=== PATIENT | female | born 1945 | race American Indian/Alaskan Native ===

== ENCOUNTER 2016-12-06 07:06 | Outpatient (CLI) | payer MEDICARE ==
--- NOTE | 2016-12-06 14:12 | Mammography Report ---
BILATERAL MAMMOGRAM with CAD: HISTORY: Cancer screening. Comparison study is dated December 01, 2015. FINDINGS: The breast tissue is heterogeneously dense, which could obscure detection of small masses (approximately 50%-75% glandular). No mass, distortion, suspicious calcification, or skin change is seen. Stable radiographically benign calcifications are noted on the right. IMPRESSION: Negative mammogram. There is no mammographic evidence of malignancy. RECOMMENDATION: Follow-up per ACS guidelines. BI-RADS CATEGORY: 1 = Negative ACR BI-RADS MAMMOGRAPHIC CODES: 0 = Needs additional imaging evaluation; 1 = Negative; 2 = Benign; 3 = Probably benign; 4 = Suspicious; 5 = Malignant; 6 = Known biopsy-proven malignancy COMMENT: 1. Dense breast tissue, i.e., adenosis, fibrocystic changes, etc., may obscure an underlying neoplasm. 2. Approximately 10% of cancers are not detected with mammography. 3. A negative mammography report should not delay biopsy if a clinically suspicious mass is present. COMMENT: Patient follow-up letters are generated in [employer].
== END 2016-12-06 07:07 | disposition home or self-care (01) ==
LOC: MAMMO 07:06
PROVIDERS: ATTEND Internal Medicine
DX: Z12.31 Encounter for screening mammogram for malignant neoplasm of breast (principal)
CPT/HCPCS: 77067; G0202

== ENCOUNTER 2017-12-19 12:42 | Outpatient (CLI) | payer MEDICARE ==
--- NOTE | 2017-12-20 07:24 | Mammography Report ---
Bilateral mammogram: Compared to 12/06/16 and 12/01/15. CAD study utilized. Findings: Scattered glandular parenchyma bilaterally. Benign calcifications right breast. Benign axillary nodes. No microcalcification. Impression: Benign findings. Annual followup recommended. BI-RADS CATEGORY: 2 = Benign ACR BI-RADS MAMMOGRAPHIC CODES: 0 = Needs additional imaging evaluation; 1 = Negative; 2 = Benign; 3 = Probably benign; 4 = Suspicious; 5 = Malignant; 6 = Known biopsy-proven malignancy COMMENT: 1. Dense breast tissue, i.e., adenosis, fibrocystic changes, etc., may obscure an underlying neoplasm. 2. Approximately 10% of cancers are not detected with mammography. 3. A negative mammography report should not delay biopsy if a clinically suspicious mass is present. COMMENT: Patient follow-up letters are generated in [employer].
== END 2017-12-19 12:43 | disposition home or self-care (01) ==
LOC: MAMMO 12:42
PROVIDERS: ATTEND Internal Medicine
DX: Z12.31 Encounter for screening mammogram for malignant neoplasm of breast (principal)
CPT/HCPCS: 77067

== ENCOUNTER 2018-05-23 18:26 | Emergency (ER) | payer MEDICARE, OTHER ==
[2018-05-23 19:52] VITALS: BP 147/78
--- NOTE | 2018-05-23 21:46 | XRay Report ---
FINAL REPORT PROCEDURE: Three view cervical spine series TECHNIQUE: AP, lateral view and odontoid view were obtained. HISTORY: neck pain COMPARISON: No prior studies are available for comparison. FINDINGS: No fracture or subluxation is seen. The prevertebral soft tissues appear normal. Posterior elements a ppear intact. Moderate disc space narrowing with anterior osteophyte formation visualized at C5-C6. T here is mild narrowing of the C6-C7 disc space. IMPRESSION: Degenerative disc disease C5-C6-C6-C7 as described. No fracture or subluxation is visualized.
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
== END 2018-05-23 23:46 | disposition home or self-care (01) ==
LOC: ED 18:26
DX: S16.1XXA Strain of muscle, fascia and tendon at neck level, initial encounter (principal); V89.2XXA Person injured in unspecified motor-vehicle accident, traffic, initial encounter; Y93.89 Activity, other specified; Y99.8 Other external cause status; Y92.410 Unspecified street and highway as the place of occurrence of the external cause
CPT/HCPCS: 72040; 99283

== ENCOUNTER 2019-02-19 13:59 | Outpatient (CLI) | payer MEDICARE ==
--- NOTE | 2019-02-19 15:50 | Mammography Report ---
DIGITAL SCREENING MAMMOGRAM WITH CAD, 02/19/2019 INDICATION: Routine screening mammography. TECHNIQUE: Digital bilateral 2D mammography was obtained in the craniocaudal and mediolateral obliq ue projections. This examination was interpreted with the benefit of Computer-Aided Detection analysi s. COMPARISON: 12/19/2017 FINDINGS: Breast Density: The breasts are heterogeneously dense, which may obscure small masses. There is no evidence of dominant mass, suspicious calcifications or architectural distortion in eithe r breast. IMPRESSION: No mammographic evidence of malignancy. Follow up recommendation: Routine yearly BI-RADS Category 2: Benign. A "normal" or negative report should not discourage follow up or biopsy of a clinically significant f inding. A written summary of these findings will be mailed to the patient. The patient will be entered into a mammography reporting system which will generate a reminder letter for the patient's next appointmen t at the appropriate interval. The [employer] recommends yearly mammograms starting at age 40 and continuing as l levy as a woman is in good health. Breast MRI is recommended for women with an approximate 20-25% or greater lifetime risk of breast cancer, including women with a strong family history of breast or ova tricia cancer or who have been treated for Hodgkin's disease. Signer Name: Bharat Wilder MD Signed: 02/19/2019 3:45 PM Workstation Name: [id number]
== END 2019-02-19 14:00 | disposition home or self-care (01) ==
LOC: MAMMO 13:59
PROVIDERS: ATTEND Internal Medicine
DX: Z12.31 Encounter for screening mammogram for malignant neoplasm of breast (principal)
CPT/HCPCS: 77067

== ENCOUNTER 2019-03-24 08:04 | Outpatient (CLI) | payer MEDICARE ==
--- NOTE | 2019-03-24 09:11 | XRay Report ---
CHEST 2 VIEWS INDICATION: J20.8 ACUTE BACTERIAL BRONCHITIS/466.0 COPD. COMPARISON: None FINDINGS: Support devices: None. Heart: Within normal limits. Lungs/pleura: No acute air space or interstitial disease. No pneumothorax. Additional findings: None. IMPRESSION: No acute findings. Signer Name: Jose Luis Martinez Jr, MD Signed: 03/24/2019 9:07 AM Workstation Name: [id number]
== END 2019-03-24 08:05 | disposition home or self-care (01) ==
LOC: XRAY 08:04
PROVIDERS: ATTEND Nurse Practitioner Family
DX: J20.8 Acute bronchitis due to other specified organisms (principal)
CPT/HCPCS: 71046